=== PATIENT | female | born 1955 | race Caucasian/White ===

== ENCOUNTER 2019-03-01 17:26 | Emergency (ER) | payer MEDICARE ==
--- NOTE | 2019-03-01 18:06 | ED Physician Documentation ---
History of Present Illness - Stated complaint Stated Complaint: SOA/GLF - Chief complaint Chief Complaint: General - History obtained from History obtained from: Patient - History of Present Illness Timing: Other (63-year-old woman with history of hypertension was referred from the office today with shortness of breath for 2 weeks. She describes orthopnea and pedal edema. Of note she used to be on lisinopril and hydrochlorothiazide but has not been on them in the last several years because of some insurance issues. She has a cough, but it is a chronic smoker's cough, not any worse than normal.) Review of Systems Ten Systems: 10 systems reviewed and negative Constitutional: denies: Fever, Chills Throat: denies: Dental pain / toothache Cardiac: reports: Pedal edema, Calf pain. denies: Chest pain / pressure, Palpitations Respiratory: reports: Dyspnea, Cough PD PAST MEDICAL HISTORY - Present Medications Home Medications: Ambulatory Orders Medication Instructions Recorded Confirmed Furosemide [Lasix] 40 mg PO DAILY #30 tablet 03/01/19 Lisinopril 10 mg PO DAILY #30 tablet 03/01/19 Potassium Chloride 10 meq PO DAILY #30 tablet.er 03/01/19 - Allergies Allergies/Adverse Reactions: Allergies Allergy/AdvReac Type Severity Reaction Status Date / Time No Known Drug Allergies Allergy Verified 03/01/19 17:37 PD ED PE NORMAL - Vitals Vital signs reviewed: Yes - General General: Alert and oriented X 3, No acute distress - Neck Neck: Supple, no meningeal sign, No bony TTP - Cardiac Cardiac: RRR, No murmur - Respiratory Respiratory: No respiratory distress, Clear bilaterally - Abdomen Abdomen: Normal bowel sounds, Soft, Non tender - Extremities Extremities: Other (Moderate bilateral pitting pedal edema, no calf tenderness) - Neuro Neuro: Alert and oriented X 3, Normal speech Results - Vitals Vitals: Vital Signs - 24 hr 03/01/19 03/01/19 17:32 19:23 Temperature 36.9 C Heart Rate 90 81 Respiratory 14 20 Rate Blood Pressure 201/118 H 184/99 H O2 Saturation 93 98 Oxygen O2 Source Room air - EKG (time done) 1744 Rate: Rate (enter#) (82) Rhythm: NSR, LAE [place]: RAD Intervals: Normal PA QRS: LVH Ischemia: Non specific changes - Labs Labs: Laboratory Tests 03/01/19 03/01/1903/01/19 18:22 18:22 18:22 WBC 8.8 RBC 5.45 H Hgb 17.3 H Hct 52.6 H MCV 96.5 MCH 31.7 H MCHC 32.9 RDW 14.7 Plt Count 242 MPV 7.9 Neut # (Auto) 6.4 Lymph # (Auto) 1.5 [place] # (Auto) 0.7 Eos # (Auto) 0.1 Baso # (Auto) 0.1 Absolute Nucleated RBC 0.00 Nucleated RBC % 0.0 PT 14.7 H INR 1.3 H D-Dimer Sodium 140 Potassium 3.2 L Chloride 99 L Carbon Dioxide 25 Anion Gap 16.0 H BUN 18 Creatinine 1.4 H Estimated GFR (MDRD) 38 L Glucose 113 H Calcium 9.1 Total Bilirubin 2.1 H AST 30 ALT 23 Alkaline Phosphatase 111 Total Creatine Kinase 55 CK-MB (CK-2) Troponin I B-Natriuretic Peptide Total Protein 6.3 L Albumin 3.5 Globulin 2.8 Albumin/Globulin Ratio 1.3 Lipase 26 03/01/19 03/01/19 03/01/19 18:22 18:22 18:22 WBC RBC Hgb Hct MCV MCH MCHC RDW Plt Count MPV Neut # (Auto) Lymph # (Auto) [place] # (Auto) Eos # (Auto) Baso # (Auto) Absolute Nucleated RBC Nucleated RBC % PT INR D-Dimer 335.4 H Sodium Potassium Chloride Carbon Dioxide Anion Gap BUN Creatinine Estimated GFR (MDRD) Glucose Calcium Total Bilirubin AST ALT Alkaline Phosphatase Total Creatine Kinase CK-MB (CK-2) 2.2 Troponin I 0.05 B-Natriuretic Peptide 7211.00 H Total Protein Albumin Globulin Albumin/Globulin Ratio Lipase - Rads (name of study) 2v chest Radiology: EMP read contemporaneously (NAD) PD MEDICAL DECISION MAKING - ED course ED course: 63-year-old woman who is noncompliant with antihypertensive treatment presents with signs and symptoms of congestive heart failure with markedly elevated BNP. Although her d-dimer flags as high, most authorities would consider this to be a negative value as most authorities consider 500 to be the cutoff for screening for thromboembolism. She received Lasix and lisinopril in the emergency department. Departure - Departure Disposition: 01 Home, Self Care Clinical Impression: Congestive heart failure Qualifiers: Heart failure type: unspecified Heart failure chronicity: acute on chronic Qualified Code(s): I50.9 - Heart failure, unspecified Condition: Good Record reviewed to determine appropriate education?: Yes Instructions: Heart Failure Dc, Lasix Prescriptions: Furosemide [Lasix] 40 mg PO DAILY #30 tablet Lisinopril 10 mg PO DAILY #30 tablet Potassium Chloride 10 meq PO DAILY #30 tablet.er Comments: As discussed you should follow-up with your primary care physician within the next few days for recheck. At a minimum before you go on her trip he will need repeat labs to check your renal function and potassium. It would also be helpful for you to have an echocardiogram and cardiology consult. Return for new or worsening symptoms. Try to quit smoking. Low-salt diet as discussed, less than 2 g/day total.
[2019-03-01 18:28] LABS: BASOPHILS # (AUTO) 0.1 10^3/uL (0.0-0.1); BASOPHILS % (AUTO) 0.8 %; EOSINOPHILS # (AUTO) 0.1 10^3/uL (0.0-0.7); EOSINOPHILS % (AUTO) 0.8 %; HGB - HEMOGLOBIN 17.3 g/dL (12.0-16.0); LYMPHOCYTES # (AUTO) 1.5 10^3/uL (1.5-3.5); MEAN CORPUSCULAR HEMOGLOBIN 31.7 pg (27.0-31.0); MEAN CORPUSCULAR HGB CONC 32.9 g/dL (32.0-36.0); MEAN CORPUSCULAR VOLUME 96.5 fL (81.0-99.0); MEAN PLATELET VOLUME 7.9 fL (7.9-10.8); MONOCYTES # (AUTO) 0.7 10^3/uL (0.0-1.0); MONOCYTES % (AUTO) 8.5 %; NEUTROPHILS # (AUTO) 6.4 10^3/uL (1.5-6.6); NEUTROPHILS % (AUTO) 72.9 %; PLT - PLATELET COUNT 242 10^3/uL (130-450); RED BLOOD COUNT 5.45 10^6/uL (4.20-5.40); RED CELL DISTRIBUTION WIDTH 14.7 % (12.0-15.0); WHITE BLOOD COUNT 8.8 x10^3/uL (4.8-10.8)
[2019-03-01 18:34] LABS: INR 1.3 (0.8-1.2); PT - PROTHROMBIN TIME 14.7 secs (9.9-12.6)
[2019-03-01 18:44] LABS: ALBUMIN 3.5 g/dL (3.2-5.5); ALBUMIN/GLOBULIN RATIO 1.3 (1.0-2.2); BILIRUBIN,TOTAL 2.1 mg/dL (0.2-1.0); CALCIUM 9.1 mg/dL (8.5-10.3); CREATININE 1.4 mg/dL (0.4-1.0); TOTAL PROTEIN 6.3 g/dL (6.7-8.2)
[2019-03-01] MEDS ORDERED: POTASSIUM CHLORIDE 20 MEQ TABLET PO STA (18:50)
[2019-03-01 18:59] LABS: TROPONIN I 0.05 ng/mL (<0.49)
[2019-03-01 19:01] LABS: CREATINE KINASE MB 2.2 ng/mL (0.6-6.3)
[2019-03-01] MEDS ORDERED: LISINOPRIL 5 MG TABLET PO STA (19:08)
[2019-03-01] MEDS ORDERED: FUROSEMIDE 20 MG TABLET PO STA (19:08)
--- NOTE | 2019-03-01 19:23 | XRAY Report ---
Reason: dyspnea Procedure Date: 03/01/2019 Accession Number: [id number] / [id number] Procedure: XR - Chest 2 View X-Ray CPT Code: 87955 FULL RESULT: EXAM: CHEST RADIOGRAPHY EXAM DATE: 03/01/2019 07:06 PM. CLINICAL HISTORY: Shortness of breath. COMPARISON: None. TECHNIQUE: 2 views. FINDINGS: Lungs/Pleura: No focal opacities evident. No pleural effusion. No pneumothorax. Normal volumes. Mediastinum: Heart and mediastinal contours are unremarkable. Other: None. IMPRESSION: No acute cardiopulmonary abnormality demonstrated. [facility]
[2019-03-01 19:44] VITALS: BP 185/110
== END 2019-03-01 19:43 | disposition home or self-care (01) ==
LOC: ED 17:26
DX: I11.0 Hypertensive heart disease with heart failure (principal); I50.9 Heart failure, unspecified; T46.4X6A Underdosing of angiotensin-converting-enzyme inhibitors, initial encounter; T50.2X6A Underdosing of carbonic-anhydrase inhibitors, benzothiadiazides and other diuretics, initial encounter; Z91.128 Patient's intentional underdosing of medication regimen for other reason; I45.81 Long QT syndrome; F17.200 Nicotine dependence, unspecified, uncomplicated
CPT/HCPCS: 36415; 71046; 80053; 82550; 82553; 83690; 83880; 84484; 85025; 85379; 85610; 93005; 99283; 99284; A9270

== ENCOUNTER 2019-03-24 11:35 | Outpatient (CLI) | payer MEDICARE ==
[2019-03-24 19:21] LABS: BASOPHILS # (AUTO) 0.1 10^3/uL (0.0-0.1); BASOPHILS % (AUTO) 1.1 %; EOSINOPHILS # (AUTO) 0.1 10^3/uL (0.0-0.7); HGB - HEMOGLOBIN 17.1 g/dL (12.0-16.0); LYMPHOCYTES # (AUTO) 1.4 10^3/uL (1.5-3.5); LYMPHOCYTES % (AUTO) 22.3 %; MEAN CORPUSCULAR HEMOGLOBIN 31.8 pg (27.0-31.0); MEAN CORPUSCULAR HGB CONC 32.8 g/dL (32.0-36.0); MEAN CORPUSCULAR VOLUME 97.1 fL (81.0-99.0); MEAN PLATELET VOLUME 8.9 fL (7.9-10.8); MONOCYTES # (AUTO) 0.5 10^3/uL (0.0-1.0); MONOCYTES % (AUTO) 8.9 %; NEUTROPHILS # (AUTO) 4.1 10^3/uL (1.5-6.6); NEUTROPHILS % (AUTO) 65.7 %; PLT - PLATELET COUNT 245 10^3/uL (130-450); RED BLOOD COUNT 5.38 10^6/uL (4.20-5.40); RED CELL DISTRIBUTION WIDTH 14.5 % (12.0-15.0); WHITE BLOOD COUNT 6.2 x10^3/uL (4.8-10.8)
[2019-03-24 19:32] LABS: ALBUMIN 3.9 g/dL (3.2-5.5); ALBUMIN/GLOBULIN RATIO 1.5 (1.0-2.2); ALKALINE PHOSPHATASE 110 IU/L (42-121); ALT ALANINE AMINOTRANSFERASE 21 IU/L (10-60); AST ASPARTATE AMINOTRANSFERASE 24 IU/L (10-42); BILIRUBIN,TOTAL 1.7 mg/dL (0.2-1.0); BUN - BLOOD UREA NITROGEN 19 mg/dL (6-20); CALCIUM 9.5 mg/dL (8.5-10.3); CARBON DIOXIDE - CO2 24 mmol/L (21-32); CHLORIDE 105 mmol/L (101-111); CHOL/HDL RATIO 3.9 (<4.4); CHOLESTEROL 233 mg/dL; CREATININE 1.3 mg/dL (0.4-1.0); GFR - MDRD 41 (>89); GLUCOSE 105 mg/dL (70-100); HDL CHOLESTEROL 60 mg/dL; LDL CHOLESTEROL,CALCULATED 151 mg/dL; LDL/HDL RATIO 2.5 (<4.4); SODIUM 140 mmol/L (135-145); TOTAL PROTEIN 6.5 g/dL (6.7-8.2); VLDL CHOLESTEROL 22 mg/dL
[2019-03-26 00:33] LABS: HEMOGLOBIN A1C 0.83 g/dL; HEMOGLOBIN A1C % 6.1 % (4.6-6.2)
== END 2019-03-24 11:36 | disposition home or self-care (01) ==
LOC: LAB.WCP 11:35
PROVIDERS: ATTEND Physician Assistant
DX: I11.0 Hypertensive heart disease with heart failure (principal); I50.9 Heart failure, unspecified; R73.9 Hyperglycemia, unspecified; F17.200 Nicotine dependence, unspecified, uncomplicated; E66.9 Obesity, unspecified
CPT/HCPCS: 36415; 80053; 80061; 81599; 83036; 83721; 83880; 85025

== ENCOUNTER 2019-03-24 13:52 | Outpatient (CLI) | payer MEDICARE | END 2019-03-24 13:53 | disposition home or self-care (01) | LOC: DI 13:52 | PROVIDERS: ATTEND Physician Assistant | DX: I11.0 Hypertensive heart disease with heart failure (principal); I50.9 Heart failure, unspecified; I34.0 Nonrheumatic mitral (valve) insufficiency; R73.9 Hyperglycemia, unspecified; F17.200 Nicotine dependence, unspecified, uncomplicated; E66.9 Obesity, unspecified | CPT/HCPCS: 36415; 80053; 80061; 81599; 83036; 83721; 83880; 85025; 93306 ==

== ENCOUNTER 2020-08-27 14:40 | Outpatient (CLI) | payer MEDICARE ==
[2020-08-27 17:40] LABS: BASOPHILS # (AUTO) 0.1 10^3/uL (0.0-0.1); BASOPHILS % (AUTO) 0.7 %; EOSINOPHILS # (AUTO) 0.3 10^3/uL (0.0-0.7); EOSINOPHILS % (AUTO) 2.7 %; HGB - HEMOGLOBIN 16.6 g/dL (12.0-16.0); LYMPHOCYTES # (AUTO) 2.3 10^3/uL (1.5-3.5); MEAN CORPUSCULAR HEMOGLOBIN 32.6 pg (27.0-31.0); MEAN CORPUSCULAR HGB CONC 33.1 g/dL (32.0-36.0); MEAN CORPUSCULAR VOLUME 98.6 fL (81.0-99.0); MEAN PLATELET VOLUME 10.3 fL (7.9-10.8); MONOCYTES # (AUTO) 0.9 10^3/uL (0.0-1.0); MONOCYTES % (AUTO) 8.4 %; NEUTROPHILS # (AUTO) 6.9 10^3/uL (1.5-6.6); NEUTROPHILS % (AUTO) 65.7 %; PLT - PLATELET COUNT 317 10^3/uL (130-450); RED BLOOD COUNT 5.09 10^6/uL (4.20-5.40); RED CELL DISTRIBUTION WIDTH 12.4 % (12.0-15.0); WHITE BLOOD COUNT 10.4 x10^3/uL (4.8-10.8)
[2020-08-27 18:08] LABS: ALBUMIN 4.1 g/dL (3.2-5.5); ALBUMIN/GLOBULIN RATIO 1.3 (1.0-2.2); ALKALINE PHOSPHATASE 109 IU/L (42-121); ALT ALANINE AMINOTRANSFERASE 18 IU/L (10-60); AST ASPARTATE AMINOTRANSFERASE 18 IU/L (10-42); BILIRUBIN,TOTAL 0.5 mg/dL (0.2-1.0); BUN - BLOOD UREA NITROGEN 26 mg/dL (6-20); CALCIUM 9.7 mg/dL (8.5-10.3); CARBON DIOXIDE - CO2 24 mmol/L (21-32); CHLORIDE 105 mmol/L (101-111); CHOL/HDL RATIO 5.3 (<4.4); CHOLESTEROL 267 mg/dL; CREATININE 1.4 mg/dL (0.4-1.0); GLUCOSE 101 mg/dL (70-100); HDL CHOLESTEROL 50 mg/dL; LDL CHOLESTEROL,CALCULATED 182 mg/dL; LDL/HDL RATIO 3.6 (<4.4); SODIUM 141 mmol/L (135-145); TOTAL PROTEIN 7.2 g/dL (6.7-8.2); VLDL CHOLESTEROL 35 mg/dL
[2020-08-27 20:50] LABS: HEMOGLOBIN A1c% 5.6 % (4.27-6.07)
== END 2020-08-27 23:59 | disposition home or self-care (01) ==
LOC: LAB.WCP 14:40
PROVIDERS: ATTEND Physician Assistant
DX: I10 Essential (primary) hypertension (principal); E78.5 Hyperlipidemia, unspecified; R73.9 Hyperglycemia, unspecified
CPT/HCPCS: 36415; 80053; 80061; 83036; 83721; 85025